=== PATIENT | female | born 1995 | race Caucasian/White ===

== ENCOUNTER 2022-02-12 05:08 | Inpatient (IN) | payer BC ==
[2022-02-12] MEDS ORDERED: CARBOPROST TROME 250 MCG/ML IM PRN (05:10)
[2022-02-12] MEDS ORDERED: METHYLERGONOVINE 0.2MG/ML AMP IM PRN (05:10)
[2022-02-12] MEDS ORDERED: BUTORPHANOL 1 MG/ML INJ IV PRN (05:10)
[2022-02-12] MEDS ORDERED: PROMETHAZINE INJ 25 MG/ML AMP IM PRN (05:10)
[2022-02-12] MEDS ORDERED: OXYTOCIN/LR 20 UNIT/1,000 ML BAG IV SCH ×2 (05:11→10:00)
--- OUTSIDE RECORDS SUMMARY | 2022-02-12 05:11 | XMS REPORT | Continuity of Care Document ---
:1995 Author Organization [facility] t Address [address] [place] [address] [address] [place] [address] Care Team Providers Name Role Phone Cristina Morales PA-C Attending Clinician CRISTINA MORALES Attending Clinician Unavailable Payers Payer Name Policy Type Policy Number Effective Date Expiration Date S ource Problems Condition Condition Condition Status Onset Resolution Last Treating Co mments Source Name Details Category Date Date Treatment Clinician Date No known No known Disease Unive rs active active ity of problems problems [facility] Allergies, Adverse Reactions, Alerts Allergy Allergy Status Severity Reaction(s) Onset Inactive Treating Comm ents Source Name Type Date Date Clinician NO KNOWN Drug Active Univers ALLERGIE Class ity of S [facility] Social History Social Habit Start Date Stop Date Quantity Comments Source Exposure to Not sure [facility] SARS-CoV-2 [facility] (event) [place] Tobacco use and 2020-09-04 2020-09-04 Never used Universit y of exposure 00:00:00 00:00:00 [facility] Alcohol intake 2020-09-04 2020-09-04 Lifetime University of 00:00:00 00:00:00 non-drinker [facility] (finding) [place] Sex Assigned At [birth year] Universit y of 00:00:00 00:00:00 [facility] Smoking Status Start Date Stop Date Source Never smoker [facility] Medications Ordered Filled Start Stop Current Ordering Indication Dosage Frequency Signature Comments Components Source Medication Medication Date Date Medication? Clinician (SIG) Name Name norethindro 2020- No Take by Un jhoana ne 0.35 mg 4-15 04-15 mouth ity of tablet 16:23: 00:00 daily. [place] 35 :[address] [facility] norethindro 2020- No Take by Un jhoana ne 0.35 mg 4-15 09-04 mouth ity of tablet 16:23: 00:00 daily. [place] 35 :[address] [facility] norethindro Yes [id number] 1{tbl} Take 1 Univers ne 0.35 mg 4-15 tablet by ity of tablet 00:00: mouth [place] [address] [facility] norethindro Yes [id number] 1{tbl} Take 1 Univers ne 0.35 mg 4-15 tablet by ity of tablet 00:00: mouth [place] [address] [facility] Vital Signs Vital Name Observation Time Observation Value Comments Source Systolic blood 2020-09-04 15:42:00 110 mm[Hg] Univer sity of pressure [facility] Diastolic blood 2020-09-04 15:42:00 71 mm[Hg] [facility] 2020-09-04 15:42:00 74 /min [facility] Body temperature 2020-09-04 15:42:00 36.78 [facility] Respiratory rate 2020-09-04 15:42:00 18 /min [facility] Body height 2020-09-04 15:42:00 177.8 cm [facility] Body weight 2020-09-04 15:42:00 57.153 kg [facility] BMI 2020-09-04 15:42:00 18.08 kg/m2 [facility] Procedures Procedure Date / Time Performed Performing Clinician Sourc e POCT TEST 2020-09-04 00:00:00 Cristina Morales [facility] Encounters Start End Encounter Admission Attending Care Care Encounter Source Date/Time Date/Time Type Type Clinicians Facility Department ID 2020-09-04 2020-09-04 Office Carmen WIHAIM [id number] [facility] 10:17:36 11:25:32 Visit Cristina Ng [id number] i [facility] [id number] Bhavna Heller [phone] [place] [address] [address] 2020-09-04 2020-09-04 Outpatient R CARMEN WIHAIM [facility] [id number] [facility] 10:30:00 10:30:00 CRISTINA portillo [facility] Results Test Description Test Time Test Comments Results Result Comments Source POCT TEST 2020-09-04 16:00:00 Test Item Value Reference Range Interpretation Comme nts POCT PREG (test code = 1605) Negative On board controls acceptable with C Line (test code = 3574) Yes POCT PREG LOT # (test code = 3575) POCT PREG TEST DATE (test code = 3576) Lab Interpretation (test code = 38116-5) [id number] 16:00:00 Test Item Value Reference Range Interpretation Comments POCT PREG (test code = 1605) Negative On board controls acceptable with C Yes Line (test code = 3574) POCT PREG LOT # (test code = 3575) POCT PREG TEST DATE (test code = 3576) Lab Interpretation (test code = Normal 37888-9) [facility]
[2022-02-12] MEDS: Ringers Lactate 1,000 ML IV PRN ×2 (05:21→07:55)
[2022-02-12] MEDS ORDERED: Ringers Lactate 1,000 ML IV SCH (06:00)
[2022-02-12 06:19] LABS: Absolute Lymphocytes (CBC) 2.3 K/uL (0.7-4.9); Hematocrit 30.7 % (36.0-45.0); Lymphocytes % 21.2 % (15.3-44.8); MCV 81.1 fL (80-100); RBC Red Blood Cell Count 3.78 M/uL (3.86-4.86)
[2022-02-12 06:23] LABS: SARS-CoV-2 Antigen Rapid Res Negative (Negative)
[2022-02-12 06:34] VITALS: BMI 22.2
[2022-02-12] MEDS ORDERED: BUPIVACAINE 0.25% PF 10 ML VIAL IJ PRN (07:55)
[2022-02-12] MEDS ORDERED: ROPIVACAINE HCL 0.2% 20ML AMP IV ONE (07:55)
[2022-02-12] MEDS ORDERED: FENTANYL CITR 100 MCG/2 ML IV ONE (07:55)
[2022-02-12] MEDS ORDERED: 0.2% ROPIVACAINE (200 MG/100 ML) BAG EP ONE (08:03)
[2022-02-12] MEDS ORDERED: DIPHENHYDRAMINE 50 MG/ML VIAL ONE (09:02)
[2022-02-12] MEDS ORDERED: LIDOCAINE 1% MPF 30 ML VIAL ONE (09:04)
[2022-02-12] MEDS ORDERED: ACETAMINOPHEN 500 MG TAB PO PRN (09:50)
[2022-02-12] MEDS ORDERED: DIPHENHYDRAMINE 25 MG TAB/CAP PO PRN (09:50)
[2022-02-12] MEDS ORDERED: Oxycodone HCl/Acetaminophen 1 TAB TAB PO PRN ×2 (09:50)
[2022-02-12] MEDS ORDERED: BISACODYL 10 MG RECTAL SUPP PR PRN (09:50)
[2022-02-12] MEDS ORDERED: DOCUSATE NA/SENNA CONC 1 TAB PO PRN (09:50)
[2022-02-12] MEDS ORDERED: IBUPROFEN 600 MG TAB PO PRN (10:05)
--- NOTE | 2022-02-12 12:19 | PREOPHP ---
Date of Admission: 02/12/2022 History Of Present Illness: A 26-year-old 4, para 2, at 38 weeks and 4 days, scheduled for i nduction next week, came in with rupture of membranes in early labor, 3 cm on admission. Baby looks good. She is juany regularly, now on 6 milliunits of Pitocin. She is now 3.5, still somewhat posterior, 70% effaced, -1 station, position of the baby difficult to tell, but it is probably occipu t posterior, at this point. Patient is doing well with just breathing techniques, right now. She pr obably will want an epidural but she wants to wait until her gets here. He is arranging baby sitters. Family History: Two grandparents with carcinoma, site unknown; father also, site unknown. The mater nal grandmother with stroke. Brother had a cleft lip. No serious medical illnesses. She had an ankle repair following an injury in 2010. Allergies: NO ALLERGIES. Medications: vitamins prior to admission. Social History: Does not smoke. Physical Examination: HEENT: Clear. Pupils equally round and reactive to light and accommodation. Conjunctivae well perf used. No oral, lingual, or buccal lesions. Chest and Lungs: Clear. Heart: Without murmurs, thrills, heaves, or rubs. Breasts: Without masses on previous visits. Abdomen: Term size. Extremities: Clear without edema, cyanosis, or clubbing. Pelvic: As stated, approximately 3.5, 70%, -1 station. Strep is negative. Rh positive, immune to rubella. Full labor talk given. Anticipate delivery some time later today. FAM/ROBERT Voice ID: [id number]
[2022-02-12] MEDS ORDERED: METHYLERGONOVINE 0.2MG/ML AMP IM ONE ×2 (14:14→14:21)
[2022-02-12] MEDS: METHYLERGONOVINE 0.2 MG TAB PO SCH ×3 (14:47→23:12)
[2022-02-12] MEDS ORDERED: Ringers Lactate 3,000 ML IV ONE (15:52)
[2022-02-12 23:05] LABS: RPR (Rapid Plasma Reagin) NON-REACT (NON-REACT)
--- NOTE | 2022-02-13 01:09 | OP ---
Surgeon: Prem Gaines MD This is a 26-year-old, 4, para 2, AB1, 38 weeks and 4 days, scheduled for induction next week , came in with rupture of membranes and in early labor. It was approximately 3.5 cm on admission, con tracting regularly. Started on Pitocin augmentation. At 5 cm, requested and received epidural anest hesia, went to complete rapidly thereafter, second stage of about 15 minutes. Spontaneous vaginal de livery of an estimated 7.5 to 8 pounds female, Apgars 9 and 9. No episiotomy. No laceration. Schul tze delivery of the placenta, which inspected and noted to be intact and normal. Less than 200 cc bl ood loss. The patient tolerated all procedures well. Rh positive, immune to Rubella, and negative s trep. Final Diagnoses: Term intrauterine at 38 weeks 4 days, spontaneous labor, vaginal delivery , epidural anesthesia. Tdap offered. FAM/ROBERT Voice ID: [id number] Report ID: [id number]
[2022-02-13] MEDS: METHYLERGONOVINE 0.2 MG TAB PO SCH (03:27)
[2022-02-13 04:18] VITALS: BP 139/88; TEMP 97.9
--- NOTE | 2022-02-13 08:48 | DS ---
Hospital Course: A 26-year-old, 4, para 2, at 38 weeks and 4 days, experienced spontaneous r upture of membranes, came in active labor. Subsequently, delivered a 7-pound 9-ounce female, Apgars 9 and 9. No episiotomy. No laceration. Epidural anesthesia. Schultze delivery of the placenta, in spected and noted to be intact and normal. Less than 200 cc blood loss. Rh positive, immune to rube lla. Negative strep, negative COVID. , the patient experienced mild hypotonus, was placed on Methergine p.o. She is ambulating, voiding. Lochia is normal. We will monitor her closely this morning. If she feels comfortable, we will let her go home sometime around lunchtime. We will send her home with Cytotec just in case she has any further concern about bleeding. She knows how to michelle e this every 4 hours if needed. Tdap and flu shots have been discussed and offered. There are no po st epidural problems. She is really taking no analgesics and none requested on dismissal. Final Diagnoses: Intrauterine gestation, 38 weeks 4 days, spontaneous labor, vaginal delivery, epidu ral anesthesia. Mild uterine hypotonus. Tdap and flu shots offered. FAM/MODL Voice ID: [id number] Report ID: [id number]
[2022-02-13] MEDS ORDERED: miSOPROStoL 100 MCG TAB PO SCH (09:00)
[2022-02-14] MEDS ORDERED: Ringers Lactate 2,000 ML IV ONE (04:57)
[2022-02-14 17:49] LABS: HBsAG Nonreactive (Nonreactive)
== END 2022-02-13 11:30 | disposition home or self-care (01) | DRG 807 ==
LOC: 2ND-WC 05:08
PROVIDERS: ADMIT Specialist; ATTEND Specialist
PROC: 10E0XZZ Delivery of Products of Conception, External Approach (ICD-10-PCS; principal; 2022-02-13)
DX: O42.92 Full-term premature rupture of membranes, unspecified as to length of time between rupture and onset of labor (principal); Z37.0 Single live birth; Z3A.38 38 weeks gestation of pregnancy; O62.2 Other uterine inertia; Z23 Encounter for immunization; Z20.822 Contact with and (suspected) exposure to COVID-19
CPT/HCPCS: 36415; 85025; 86592; 86850; 86900; 86901; 87340; 87811; J1200; J2210; J2590; J2795; J3010; J7120